=== PATIENT | male | born 1995 ===

== ENCOUNTER 2021-11-01 18:48 | Emergency (ER) | payer SELFPAY ==
[2021-11-01] MEDS ORDERED: FENTANYL CITR 100 MCG/2 ML ONE (19:19)
[2021-11-01] MEDS ORDERED: NA CHLORIDE 0.9% 1,000 ML ONE ×2 (19:20→22:36)
[2021-11-01] MEDS ORDERED: ONDANSETRON 4 MG/2 ML VIAL ONE ×2 (19:20→22:31)
--- NOTE | 2021-11-01 20:18 | RAD REPORT ---
EXAM DESCRIPTION: CT - CTHCSPWOC - 11/01/2021 8:06 pm CLINICAL HISTORY: Trauma, head and neck injury. fall COMPARISON: No comparisons TECHNIQUE: Axial 5 mm thick images of the head were obtained. Axial 2 mm thick images of the cervical spine were obtained with sagittal and coronal reconstruction images generated and reviewed. All CT scans are performed using dose optimization technique as appropriate and may include automated exposure control or mA/KV adjustment according to patient size. FINDINGS: CT HEAD WITHOUT CONTRAST: No acute hemorrhage, hydrocephalus or extra-axial collection is identified.No areas of brain edema or midline shift. The paranasal sinuses and mastoids are clear.The calvarium is intact. CT CERVICAL SPINE WITHOUT CONTRAST: No fracture or subluxation.No prevertebral soft tissues swelling is identified. IMPRESSION: No acute intracranial or cervical spine findings.
--- NOTE | 2021-11-01 20:57 | RAD REPORT ---
EXAM DESCRIPTION: RAD - Humerus Right - 11/01/2021 8:33 pm CLINICAL HISTORY: PAIN COMPARISON: No comparisons FINDINGS/IMPRESSION: Displaced right mid humeral fracture. There is approximately 2/3 shaft width of medial displacement with only slight angulation. Minimal overriding is noted.
[2021-11-01] MEDS ORDERED: HYDROMORPHONE HCL 0.5 MG/0.5 ML INJ ONE (21:54)
--- NOTE | 2021-11-01 22:57 | EDPHYS ---
Physician Documentation [facility] Name: Carlos Key Age: 26 yrs Sex: Male : 1995 Arrival Date: 11/01/2021 Time: 18:49 Bed 14 Private MD: ED Physician Gold Saldivar HPI: 11/01 19:25 This 26 yrs old Male presents to ER via Wheelchair with complaints of Fall Injury, Arm cp Injury, Blurred Vision. 19:25 Details of fall: The patient fell from an upright position. Onset: The symptoms/episode cp began/occurred just prior to arrival. Associated injuries: The patient sustained right upper arm, decreased range of motion, painful injury. Patient c/o blurred vision. Family reports patient consumed 2 beers today. No LOC reported and patient denies hitting head. Historical: - Allergies: 19:04 No Known Allergies; ld1 - Home Meds: 19:04 None [Active]; ld1 - PMHx: 19:04 None; ld1 - PSHx: 19:04 None; ld1 - Immunization history:: Adult Immunizations up to date. - Social history:: Smoking status: Patient denies any tobacco usage or history of. Patient/guardian denies using alcohol. ROS: 19:30 Constitutional: Negative for body aches, chills, fever, poor PO intake. cp 19:30 Eyes: Positive for blurry vision. cp 19:30 ENT: Negative for drainage from ear(s), ear pain, sore throat, difficulty swallowing, difficulty handling secretions. 19:30 Cardiovascular: Negative for chest pain, palpitations. 19:30 Respiratory: Negative for cough, shortness of breath, wheezing. 19:30 Abdomen/GI: Negative for abdominal pain, nausea, vomiting, and diarrhea. 19:30 Back: Negative for pain at rest, pain with movement. 19:30 MS/extremity: Positive for decreased range of motion, pain, of the right upper arm, Negative for paresthesias. 19:30 Neuro: Negative for altered mental status. 19:30 All other systems are negative. Exam: 19:35 Constitutional: The patient appears in no acute distress, alert, awake, non-toxic, well cp developed, well nourished, in obvious pain, uncomfortable. 19:35 Head/Face: Normocephalic, atraumatic. cp 19:35 Eyes: Periorbital structures: appear normal, Pupils: equal, round, and reactive to light and accomodation, Extraocular movements: intact throughout, Conjunctiva: normal, no exudate, no injection, Sclera: no appreciated abnormality, Lids and lashes: appear normal, bilaterally. 19:35 ENT: External ear(s): are unremarkable, Nose: is normal, Mouth: Lips: moist, Oral mucosa: moist, Posterior pharynx: Airway: no evidence of obstruction, patent. 19:35 Neck: C-spine: vertebral tenderness, is not appreciated, crepitus, is not appreciated, ROM/movement: is normal, is supple, without pain, no range of motions limitations. 19:35 Chest/axilla: Inspection: normal, Palpation: is normal, no crepitus, no tenderness. 19:35 Cardiovascular: Rate: normal, Rhythm: regular, Pulses: Pulses are 2+ in right radial artery and left radial artery. 19:35 Respiratory: the patient does not display signs of respiratory distress, Respirations: normal, no use of accessory muscles, no retractions, labored breathing, is not present, Breath sounds: are clear throughout, no decreased breath sounds, no stridor, no wheezing. 19:35 Abdomen/GI: Inspection: abdomen appears normal, Palpation: abdomen is soft and non-tender, in all quadrants. 19:35 Back: pain, is absent, ROM is normal. 19:35 Musculoskeletal/extremity: Extremities: grossly normal except: noted in the right upper arm: decreased ROM, swelling, tenderness, severe pain. 19:35 Neuro: Orientation: to person, place \T\ time. Mentation: is normal, Sensation: is normal. Vital Signs: 19:03 BP 115 / 70; Pulse 74; Resp 18; Temp 98.6(TE); Pulse Ox 99% on R/A; Weight 77.11 kg; ld1 Height 5 ft. 8 in. (172.72 cm); Pain 10/10; 22:11 BP 126 / 63; Pulse 79; Resp 17 S; Pulse Ox 100% on R/A; lg3 23:49 BP 123 / 70; Pulse 75; Resp 17; Pulse Ox 100% on R/A; lg3 19:03 Body Mass Index 25.85 (77.11 kg, 172.72 cm) ld1 Procedures: 22:25 Splinting: Splint applied to right humerus using Orthoglass splint, sling, coaptation cp type splint. applied by myself. tech. Examined by me, post splint application: neurovascular intact, Patient tolerated well. MDM: 19:02 Patient medically screened. cp 20:00 Differential diagnosis: closed head injury, contusion, fracture, multiple trauma. cp 21:00 Physician consultation: Domingo Cullen MD was called at 21:00, was contacted at 21:00, regarding consult, patient's condition, and will see patient in office. 22:55 Data reviewed: vital signs, nurses notes, radiologic studies, CT scan, plain films. cp 22:55 Test interpretation: by ED physician or midlevel provider: plain radiologic studies. cp Counseling: I had a detailed discussion with the patient and/or guardian regarding: the historical points, exam findings, and any diagnostic results supporting the discharge/admit diagnosis, radiology results, the need for outpatient follow up, for definitive care, a orthopedic surgeon, to return to the emergency department if symptoms worsen or persist or if there are any questions or concerns that arise at home. 11/01 19:10 Order name: CT Head C Spine; Complete Time: 20:38 cp 11/01 20:27 Order name: Humerus Right EDMS 11/01 19:10 Order name: IV; Complete Time: 19:32 cp Administered Medications: 19:30 Drug: fentaNYL (PF) 25 mcg Route: IVP; Site: right antecubital; lg3 19:31 Follow up: Response: No adverse reaction; RASS: Alert and Calm (0) lg3 19:31 Drug: NS 0.9% 1000 ml Route: IV; Rate: 1 bolus; Site: left antecubital; lg3 19:31 Drug: Zofran (Ondansetron) 4 mg Route: IVP; Site: left antecubital; lg3 21:30 Follow up: Response: No adverse reaction tw5 21:55 Drug: Dilaudid (HYDROmorphone) 0.5 mg Route: IVP; Site: left antecubital; lg3 21:55 Follow up: Response: No adverse reaction; RASS: Alert and Calm (0) lg3 22:34 Drug: NS 0.9% 1000 ml Route: IV; Rate: 1 bolus; Site: left antecubital; lg3 23:51 Follow up: Response: No adverse reaction; IV Status: Completed infusion; IV Intake: lg3 1000ml Disposition Summary: 11/01/21 22:56 Discharge Ordered Location: Home cp Problem: new cp Symptoms: have improved cp Condition: Stable cp Diagnosis - Mid Shaft Fracture Right Humerus cp Followup: cp - With: Domingo Cullen MD - When: 1 - 2 days - Reason: Recheck today's complaints Discharge Instructions: - Discharge Summary Sheet cp - Humerus Fracture Treated With ORIF cp Forms: - Medication Reconciliation Form cp - Thank You Letter cp - Antibiotic Education cp - Prescription Opioid Use cp Prescriptions: - Ibuprofen 800 mg Oral Tablet - take 1 tablet by ORAL route every 8 hours As needed take with food; 30 tablet; cp Refills: 0, Product Selection Permitted - Tylenol-Codeine #3 300 mg-30 mg Oral - take 2 tablet by ORAL route every 8-10 hours; 20 tablet; Refills: 0, Product cp Selection Permitted Addendum: 11/04/2021 19:16 Co-signature as Attending Physician, Gold Saldivar MD. [facility] Signatures: Dispatcher [employer] EDMS Esequiel Darby PA PA cp Indiana Nevarez RN RN lg3 Gold Saldivar MD MD 7 Yvrose Rao RN RN ld1 Aida Viera 5 Corrections: (The following items were deleted from the chart) 11/01 20:27 19:11 Shoulder Right 2 View+RAD.RAD.BRZ ordered. EDMS EDMS 20:28 19:11 Elbow Right 3 View+RAD.RAD.BRZ ordered. EDMS EDMS
--- NOTE | 2021-11-01 22:57 | ER ---
Nurse's Notes [facility] Name: Carlos Key Age: 26 yrs Sex: Male : 1995 Arrival Date: 11/01/2021 Time: 18:49 Bed 14 Private MD: Diagnosis: Mid Shaft Fracture Right Humerus Presentation: 11/01 19:02 Chief complaint: Patient states: I was outside and tripped on the dog, fell on my right ld1 arm. Care prior to arrival: None. Mechanism of Injury: Fall. Mechanism of Injury: Fall. 19:02 Acuity: REINIER 3 ld1 19:02 Method Of Arrival: Wheelchair ld1 19:03 Coronavirus screen: At this time, the client does not indicate any symptoms associated ld1 with coronavirus-19. Ebola Screen: No symptoms or risks identified at this time. Initial Sepsis Screen: Does the patient meet any 2 criteria? No. Patient's initial sepsis screen is negative. Does the patient have a suspected source of infection? No. Patient's initial sepsis screen is negative. Risk Assessment: Do you want to hurt yourself or someone else? Patient reports no desire to harm self or others. Onset of symptoms was November 01, 2021. Triage Assessment: 19:04 General: Appears in no apparent distress. uncomfortable, Behavior is cooperative, ld1 appropriate for age, anxious, crying, fussy. Pain: Complains of pain in right arm Pain does not radiate. Pain currently is 10 out of 10 on a pain scale. Quality of pain is described as throbbing, Pain began suddenly, Is continuous. Neuro: Level of Consciousness is awake, alert, obeys commands, Oriented to person, place, time, situation. Respiratory: Airway is patent Respiratory effort is even, unlabored, Respiratory pattern is regular, symmetrical. GI: Reports nausea. Musculoskeletal: Reports pain in right arm since . Historical: - Allergies: 19:04 No Known Allergies; ld1 - Home Meds: 19:04 None [Active]; ld1 - PMHx: 19:04 None; ld1 - PSHx: 19:04 None; ld1 - Immunization history:: Adult Immunizations up to date. - Social history:: Smoking status: Patient denies any tobacco usage or history of. Patient/guardian denies using alcohol. Screenin:28 Abuse screen: Denies threats or abuse. Denies injuries from another. Nutritional lg3 screening: No deficits noted. Tuberculosis screening: No symptoms or risk factors identified. Fall Risk None identified. Assessment: 19:28 General: Appears in no apparent distress. uncomfortable, Behavior is calm, cooperative. lg3 Pain: Complains of pain in right arm Pain currently is 10 out of 10 on a pain scale. Neuro: No deficits noted. Level of Consciousness is awake, alert, Oriented to person, place, time, situation. Cardiovascular: No deficits noted. Reports nausea, Denies chest pain. Respiratory: No deficits noted. Airway is patent Trachea midline Respiratory effort is even, unlabored, Respiratory pattern is regular, symmetrical. GI: No deficits noted. No signs and/or symptoms were reported involving the gastrointestinal system. Abdomen is round non-distended. : No deficits noted. No signs and/or symptoms were reported regarding the genitourinary system. EENT: No deficits noted. No signs and/or symptoms were reported regarding the EENT system. Derm: No deficits noted. No signs and/or symptoms reported regarding the dermatologic system. Musculoskeletal: Circulation, motion, and sensation intact. Capillary refill < 3 seconds, Range of motion: limited in right arm. Injury Description: fall. 22:11 Reassessment: Patient appears in no apparent distress at this time. No changes from lg3 previously documented assessment. Patient and/or family updated on plan of care and expected duration. Pain level reassessed. Patient is alert, oriented x 3, equal unlabored respirations, skin warm/dry/pink. Vital Signs: 19:03 BP 115 / 70; Pulse 74; Resp 18; Temp 98.6(TE); Pulse Ox 99% on R/A; Weight 77.11 kg; ld1 Height 5 ft. 8 in. (172.72 cm); Pain 10/10; 22:11 BP 126 / 63; Pulse 79; Resp 17 S; Pulse Ox 100% on R/A; lg3 23:49 BP 123 / 70; Pulse 75; Resp 17; Pulse Ox 100% on R/A; lg3 19:03 Body Mass Index 25.85 (77.11 kg, 172.72 cm) ld1 ED Course: 18:49 Patient arrived in ED. ag3 19:01 Esequiel Darby PA is PHCP. cp 19:01 Gold Saldivar MD is Attending Physician. cp 19:03 Triage completed. ld1 19:04 Arm band placed on left wrist. ld1 19:27 Indiana Nevarez, NATE is Primary Nurse. lg3 19:28 Patient has correct armband on for positive identification. Placed in gown. Bed in low lg3 position. Call light in reach. Side rails up X 1. 19:28 Inserted saline lock: 20 gauge in left antecubital area, using aseptic technique. lg3 20:06 CT Head C Spine In Process Unspecified. EDMS 20:33 Humerus Right In Process Unspecified. EDMS 22:46 Orthoglass splint: Coaptation splint applied on right arm. Sling applied to right arm. oe 22:55 Domingo Cullen MD is Referral Physician. cp 23:50 Assist provider with fracture care of right arm Immobilized with preformed splint, lg3 Patient tolerated well. IV discontinued, intact, bleeding controlled, No redness/swelling at site. Pressure dressing applied. Administered Medications: 19:30 Drug: fentaNYL (PF) 25 mcg Route: IVP; Site: right antecubital; lg3 19:31 Follow up: Response: No adverse reaction; RASS: Alert and Calm (0) lg3 19:31 Drug: NS 0.9% 1000 ml Route: IV; Rate: 1 bolus; Site: left antecubital; lg3 19:31 Drug: Zofran (Ondansetron) 4 mg Route: IVP; Site: left antecubital; lg3 21:30 Follow up: Response: No adverse reaction tw5 21:55 Drug: Dilaudid (HYDROmorphone) 0.5 mg Route: IVP; Site: left antecubital; lg3 21:55 Follow up: Response: No adverse reaction; RASS: Alert and Calm (0) lg3 22:34 Drug: NS 0.9% 1000 ml Route: IV; Rate: 1 bolus; Site: left antecubital; lg3 23:51 Follow up: Response: No adverse reaction; IV Status: Completed infusion; IV Intake: lg3 1000ml Intake: 23:51 IV: 1000ml; Total: 1000ml. lg3 Outcome: 22:56 Discharge ordered by . cp 23:51 Discharged to home ambulatory, with family. lg3 23:51 Condition: stable 23:51 Discharge instructions given to patient, family, Instructed on discharge instructions, follow up and referral plans. medication usage, Prescriptions given X 2. 23:52 Patient left the ED. lg3 Signatures: Dispatcher [employer] EDMS Esequiel Darby PA PA cp Espinosa, Orlando oe Gomez, Alice 3 Indiana Nevarez RN RN lg3 Yvrose Rao RN RN ld1 Aida Virea tw5
[2021-11-02 00:29] VITALS: TEMP 98.6
[2021-11-02 00:30] VITALS: O2SAT 100
[2021-11-02 00:32] VITALS: BP 123/70
== END 2021-11-01 23:52 | disposition home or self-care (01) ==
LOC: ER 18:48
PROC: 2W38X1Z Immobilization of Right Upper Extremity using Splint (ICD-10-PCS; principal; 2021-11-01)
DX: S42.301A Unspecified fracture of shaft of humerus, right arm, initial encounter for closed fracture (principal); H53.8 Other visual disturbances; W19.XXXA Unspecified fall, initial encounter
CPT/HCPCS: 70450; 72125; 99284; J1170; J2405; J3010; J7030